=== PATIENT | female | born 1980 | race Caucasian/White ===

== ENCOUNTER → 2023-05-24 09:29 | Outpatient (CLI) | payer OTHER, SELFPAY ==
--- NOTE | 2023-05-24 | DI.MG.S_ITS ---
BILATERAL DIGITAL DIAGNOSTIC MAMMOGRAM 3D/2D WITH AUGMENTATION: 05/24/2023 CLINICAL: Patient noted right breast pain approx 2 weeks ago below the nipple. Surgeon did a CBE and noted a small lump that he believes correlates with her pain. No other symptoms are noted. Due for bilateral routine. Comparison is made to exams dated: 04/27/2022 mammogram - [facility], 04/16/2022 mammogram - [facility], and 04/27/2022 ultrasound - [facility]. Both breasts are heterogeneously dense, which may obscure small masses (category c / 51-75% glandular tissue). No significant masses, calcifications, or other findings are seen in either breast. IMPRESSION: INCOMPLETE: NEEDS ADDITIONAL IMAGING EVALUATION There is no abnormality seen in the right breast to correspond with the pain, however, ultrasound is recommended. Based on the Tyrer Cuzick model (a risk assessment model) the patient's lifetime risk is 14.2% and her 10 year risk is 1.8%. According to the ACR, ACS, and NCCN guidelines, an annual breast MRI exam along with mammogram is recommended if the patient's lifetime risk is 20% or greater. This exam was interpreted at Station ID: [id number]. NOTE: For mammograms, a report in lay terms will be sent to the patient. Approximately 15% of breast malignancies will not be visualized mammographically. In the management of a palpable breast mass, a negative mammogram must not discourage biopsy of a clinically suspicious lesion. Electronically Signed By: Lencho Perez M.D. ar/:05/24/2023 21:39:17 copy to: [facility] POWE[facility] ACR BI-RADS Category 0: Incomplete 3340F
--- NOTE | 2023-05-24 09:36 | DI.US.S_ITS ---
LIMITED ULTRASOUND OF RIGHT BREAST: 05/24/2023 CLINICAL: Right breast pain approx 2 weeks. Comparison is made to exams dated: 05/24/2023 mammogram - [facility], 04/27/2022 ultrasound, 04/27/2022 mammogram - [facility], and 04/16/2022 mammogram - [facility]. Color flow and real-time ultrasound of the right breast 6 o'clock, and retroareolar regions were performed. Sanford scale images of the real-time examination were reviewed. There is a benign 0.5 cm x 0.7 cm x 0.4 cm oval cyst with a smooth internal wall in the right breast at 6 o'clock in the retroareolar region. This oval cyst is hypoechoic with posterior acoustic enhancement. This correlates to the reported pain. Color flow imaging demonstrates that there is no vascularity present. IMPRESSION: BENIGN There is no sonographic evidence of malignancy. The 0.5 cm x 0.7 cm x 0.4 cm oval cyst in the right breast is benign. A 1 year screening mammogram is recommended. This exam was interpreted at Station ID: [id number]. Electronically Signed By: Lencho Perez M.D. ar/:05/24/2023 21:42:37 copy to: [facility] POWE[facility] letter sent: Clinical Evaluation Ultrasound BI-RADS: 2 Benign
== END ==
LOC: MAMMO 09:35
PROVIDERS: Referring Provider Plastic Surgery; Visit Provider Plastic Surgery
DX: R92.2 Inconclusive mammogram (principal); N60.01 Solitary cyst of right breast; N64.4 Mastodynia; R92.333 Mammographic heterogeneous density, bilateral breasts
CPT/HCPCS: 76642; 77066; G0279